=== PATIENT | female | born 1980 | race Two or more races ===

== ENCOUNTER 2018-03-09 10:01 | Emergency (ER) | payer OTHER, MEDICAID ==
--- NOTE | 2018-03-09 13:27 | EDPHY ---
H & P Stated Complaint: back pain Time Seen by Provider: 03/09/18 12:51 HPI/ROS: CHIEF COMPLAINT: Right-sided back pain HISTORY OF PRESENT ILLNESS: A 37-year-old female presents with right-sided back pain. She has a several day history of nasal congestion and cough. The cough is nonproductive. Onset of right-sided upper back pain yesterday. The pain is [id number], increases with coughing and with movement of the right upper extremity. Ibuprofen with some relief. No shortness of breath or fever. She lifts heavy objects at work, but has not done unusual activity recently. REVIEW OF SYSTEMS: complete 10 point ROS negative except at noted in the HPI - Personal History LMP (Females 10-55): Hysterectomy Current Tetanus/Diphtheria Vaccine: No Current Tetanus Diphtheria and Acellular Pertussis (TDAP): No - Medical/Surgical History Hx Asthma: No Hx Chronic Respiratory Disease: No Hx Diabetes: No Hx Cardiac Disease: No Hx Renal Disease: No Hx Cirrhosis: No Hx Alcoholism: No Hx HIV/AIDS: No Hx Splenectomy or Spleen Trauma: No Other PMH: hysterctomy, rajan, - Social History Smoking Status: Never smoked - Physical Exam Exam: General Appearance: Alert, pleasant Eyes: Pupils equal and round, no conjunctival pallor or injection ENT, Mouth: Mucous membranes moist Neck: Normal inspection Respiratory: Lungs are clear to auscultation Cardiovascular: Regular rate and rhythm Gastrointestinal: Abdomen is soft and nontender Back: Tenderness right upper back and right side of neck Neurological: A&O, nonfocal, normal gait Skin: Warm and dry, no rash Extremities: Normal inspection Psychiatric: Mood and affect normal Constitutional: Initial Vital Signs Temperature (C) 36.7 C 03/09/18 10:08 Heart Rate 81 03/09/18 10:08 Respiratory Rate 16 03/09/18 10:08 Blood Pressure 151/91 H 03/09/18 10:08 O2 Sat (%) 97 03/09/18 10:08 O2 Delivery Mode Room Air Allergies/Adverse Reactions: albuterol Allergy (Verified 03/09/18 11:54) Home Medications: Medication Instructions Recorded Ibuprofen 03/09/18 Tylenol 03/09/18 Medical Decision Making - Diagnostics Imaging Results: Imaging Impressions Chest X-Ray 03/09/18 13:03 Impression: Normal. ED Course/Re-evaluation: This patient presents with right-sided upper back pain consistent with muscular strain. Chest x-ray is unremarkable, no evidence of pneumonia. Ibuprofen 600 mg orally given. Will follow up with PCP if symptoms persist. Avoid heavy lifting. Differential Diagnosis: Differential diagnosis includes though is not limited to pneumonia, pulmonary embolism, pneumothorax. - Data Points Medications Given: Discontinued Medications Ibuprofen (Motrin) 600 mg PO EDNOW ONE Stop: 03/09/18 14:07 Last Admin: 03/09/18 14:09 Dose: 600 mg Departure - Departure Disposition: Home, Routine, Self-Care Clinical Impression: Muscle strain of right upper back Qualifiers: Encounter type: initial encounter Qualified Code(s): S29.012A - Strain of muscle and tendon of back wall of thorax, initial encounter Condition: Good Instructions: Thoracic Back Strain (ED) Additional Instructions: Ibuprofen 600 mg 3 times daily while the pain persists. Tylenol 650 mg every 4 hr as needed for pain. Apply ice every 2 hr for pain control. Avoid lifting. Referrals: Kennedy Ziegler DO [Doctor of Osteopathy] - As per Instructions (Call to make an appointment. )
[2018-03-09] MEDS ORDERED: IBUPROFEN 600 MG TAB PO ONE (14:06)
[2018-03-09 14:13] VITALS: BP 138/95
== END 2018-03-09 14:13 | disposition home or self-care (01) ==
DX: S29.012A Strain of muscle and tendon of back wall of thorax, initial encounter (principal); X50.0XXA Overexertion from strenuous movement or load, initial encounter; Y99.0 Civilian activity done for income or pay; Y93.F2 Activity, caregiving, lifting